=== PATIENT | female | born 1980 | race Caucasian/White ===

== ENCOUNTER 2018-06-26 10:22 | Outpatient (RCR) | payer MEDICAID, SELFPAY ==
--- NOTE | 2018-06-26 10:30 | PN_ITS ---
Date: 06/26/18 Referring: Koby Padgett MD Referring Provider Diagnosis: upper back pain, strain of trapezius muscle Physical Therapy Diagnosis: Central and left sided lower cervical/upper thoracic pain, radicular symptoms down left arm Reporting period: 04/23/18-06/26/18 Subjective: Patient reports she feels like she is 80% better since starting PT. She still has some pain left posterior neck that is the worst when she wakes up in the morning. Has occasional numbness down left arm when she wakes up in the morning but has not been happening as frequently. She has not had the chance to perform any over home exercises at home this past 2 weeks. She states her symptoms have been manageable. Objective: ROM: Cervical and shoulder AROM WNL bilaterally. Strength: Left shoulder strength flexion, extension, abduction, IR, and ER, 5/ 5. Elbow flexors and extensors 5/5. NDI score 14% impaired Treatment: Manual therapy [id number] x 1. Performed reassessment of ROM and strength. Therapeutic Procedures [id number] x 1. Reviewed home exercise program with patient to ensure correct technique. Performed cervical stabilization program phase 1 and 2. Direct treatment time: 30 minutes Total treatment time: 30 minutes Assessment: Patient is a 37 year old female referred for PT services with diagnosis of central and left sided lower cervical/upper thoracic pain, radicular symptoms down left arm. Patient reports she is 80% better since starting physical therapy. She still has some pain posterior left neck occasionally that is the worst in the morning. Occasionally still has some tingling down arm but not nearly as often as in the beginning and it subsides shortly after waking up. At initial evaluation her pain rating was 8/10 and she has tingling and numbness down arm into fingers. Her cervical and bilateral shoulder AROM is WNL which has improved from initial evaluation. Strength has also improved with much more manageable symptoms. Her NDI score is now 14% impaired compared to 44% impaired at initial evaluation. STG: __6__ weeks. 1. Pt will rate pain in posterior neck and left arm as no more than 3-4/10. Goal met. Pain 80% improved. 2. Pt will demonstrate cervical AROM WNL and pain free and pain free left shoulder AROM. Goal met. 3. Pt will demonstrate 4+/5 strength or better in all left shoulder and elbow muscles. Goal met. 4. Pt will score 20% impaired or less on the NDI. Goal met. LTG: ___8_ weeks. 1. Return to premorbid level of function. Goal met. 2. Return to full, pain-free, functional mobility. Goal met. 3. Independent with self-maintenance program. Goal met. Plan: Plan to discharge from formal PT treatment at this time. All of the patient s goal have been met. Patient instructed to continue with home exercise program for self management. Patient is in agreement with plan. Emperatriz Thomas, SPT Anu Morales, MPT
== END 2018-07-26 ==
LOC: PT 10:22
PROVIDERS: PCP Family Medicine; Referring Provider Family Medicine; Visit Provider Family Medicine
DX: M54.2 Cervicalgia (principal); M54.6 Pain in thoracic spine; M54.13 Radiculopathy, cervicothoracic region
CPT/HCPCS: 97110; 97140

== ENCOUNTER → 2018-07-18 19:49 | Outpatient (REF) | payer MEDICAID, SELFPAY ==
[2018-07-18 20:19] LABS: Bilirubin Negative (Negative); Blood Negative (Negative); Clarity Clear; Glucose Negative (Negative); Ketones Negative (Negative); Leukocyte Esterase Negative (Negative); Nitrite Negative (Negative); Urobilinogen 0.2 EU/dL (Up TO 0.2)
== END ==
LOC: LBN 19:49
PROVIDERS: PCP Family Medicine
DX: R10.30 Lower abdominal pain, unspecified (principal)
CPT/HCPCS: 81003

== ENCOUNTER 2018-09-25 11:09 | Outpatient (CLI) | payer MEDICAID, SELFPAY ==
[2018-09-25 13:04] LABS: ALT 24 U/L (12-78); AST 12 U/L (15-37); Alkaline Phosphatase 58 U/L (46-116); Anion Gap 11.4 mmol/L (3-11); BUN 11 mg/dL (7-18); Bilirubin, Total 0.3 mg/dL (0.2-1.0); CO2 24.6 mmol/L (21.0-32.0); CREATININE 0.78 mg/dL (0.55-1.02); Calcium 9.2 mg/dL (8.5-10.1); Chloride 103 mmol/L (98-107); Cholesterol 170 mg/dL (50-200); Glucose 102 mg/dL (70-100); HDL Cholesterol 43 mg/dL (40-60); LDL CHOLESTEROL 119 mg/dL (<100); Potassium 4.3 mmol/L (3.5-5.1); Sodium 139 mmol/L (136-145); Total Protein 7.2 g/dL (6.4-8.2); Triglyceride 99 mg/dL (30-150)
[2018-09-25 13:07] LABS: Abs Immature Grans 0.02 k/cumm (0.0-0.09); Absolute Basophil Count 0.03 k/cumm (0.0-0.2); Absolute Eosinophil Count 0.04 k/cumm (0.0-0.7); Absolute Lymphocyte Count 2.59 k/cumm (1.2-3.4); Absolute Neutrophil Count 6.14 k/cumm (1.2-6.7); Basophils % 0.3; Eosinophils % 0.4; HCT 41.6 % (36.0-46.0); Immature Grans % 0.2; Lymphocytes % 27.8; Mean Corp. HGB Concentration 33.7 g/dL (32.0-36.0); Mean Corpuscular Hemoglobin 29.5 pg (27.0-33.0); Mean Corpuscular Volume 87.6 fL (80-95); Mean Platelet Volume 9.6 fL (8.0-11.0); Monocytes % 5.4; Neutrophils % 65.9; Platelet Count 400 x1000/uL (130-400); RBC 4.75 m/cumm (4.00-5.20); RBC Distribution Width 12.7 % (11.7-14.6); White Blood Cell Count 9.32 k/cumm (4.4-10.8)
== END 2018-09-25 11:29 ==
PROVIDERS: PCP Family Medicine; Visit Provider Family Medicine
DX: E78.6 Lipoprotein deficiency (principal); N92.0 Excessive and frequent menstruation with regular cycle; R74.8 Abnormal levels of other serum enzymes
CPT/HCPCS: 36415; 80053; 80061; 83721; 85025

== ENCOUNTER 2018-09-25 12:33 | Outpatient (REF) | payer MEDICAID, SELFPAY ==
--- NOTE | 2018-09-25 11:07 | PAPFTD_PTH ---
PATIENT: Rosalba Jacques LOC: [facility] U#:[id number] AGE/SX: 37/F ROOM: RE09/25/[address]: Koby Padgett MD : 1980 BED: DIS: 09/25/2018 SPEC #: [id number] RECD: 09/26/18 17:59 STATUS: RASHADFrederick REQ #: [id number] HELEN: 09/25/18 11:[address]: Koby Padgett DEPT: [facility] Cytology RECD BY: Ifeoma Castle ENTERED: 09/26/18 18:00 SP TYPE: PAPFTD BARBRA DR: Isabel Calhoun MD Tissues: 1 - CX/ENDOCX FOR PAP SMEARS Procedures: PAP THIN PREP/UVM Diagnostic HPV DNA PROBE Comments: [id number]
== END 2018-09-25 12:53 ==
LOC: LBN 12:33
PROVIDERS: PCP Family Medicine; Visit Provider Family Medicine
DX: Z12.4 Encounter for screening for malignant neoplasm of cervix (principal); Z11.51 Encounter for screening for human papillomavirus (HPV)
CPT/HCPCS: 88175; 87624

== ENCOUNTER 2019-03-18 15:38 | Emergency (ER) | payer MEDICAID, SELFPAY ==
[2019-03-18 15:44] VITALS: BP 130/95; PULSE 120; RESP 16; TEMP 36.6; O2SAT 97
--- NOTE | 2019-03-18 15:57 | W.ED.GENAD ---
Discharge Plan Disposition Patient Disposition: HOME Condition: Improving Discharge Details Chief Complaint: DentalOral Clinical Impression: Lymphadenopathy, Dental infection Primary Care Provider: Isabel Calhoun ED Provider: Donna Shane Home Meds and New Rx's Prescriptions: Continued cephalexin 500 mg Tablet 500 mg PO BID RF: 0 Discharge Instructions Instructions: Dental Abscess (ED) Additional Instructions: Encourage hydration. Please take antibiotic as prescribed, one tab every six hours. Please call dentist tomorrow to schedule appointment next week. Your CT scan showed enlarged lymphnodes, likely from your dental infection. You were given IV antibiotics and IV steroids. If you develop fevers/chills, increased pain, increased swelling or other new/worsenig symptoms please seek care urgently once again. Referrals: Isabel Calhoun MD [Primary Care Provider] - Discharge Data Discharge Date/Time-TO BE ENTERED AT DEPARTURE: 03/18/19 18:40 Medical Decision Making Patient is a 38-year-old female, accompanied by multiple family members, with chief complaint of right lower dental pain. She reports that pain began approximately 1 week ago. She reports that she has a known damaged tooth that was recommended to have a root canal on. However, secondary to financial restrictions, patient has not been able to have this performed. She was seen by her dentist today who was concerned for possible abscess and referred her to the emergency department for further evaluation. She reports over the past few nights she has been feeling warm. She was prescribed Keflex 4 days ago ago but has been taking this only twice a day instead of the typical 4 times daily dosing. Her reports that the swelling seems to have gone down since beginning the Keflex. Patient has been tolerating his medications well. They both report that her voice seemed to be altered approximately 2 days ago and the swelling was maximal at that time. She reports she been having severe pain with chewing but has been hydrating well without difficulty or pain. On exam, the patient appears very anxious. She is speaking clearly with no sign of muffled voice or hot potato voice. She does have limited range of motion of her jaw this seems to be partially due to anxiety as she is opening it further while speaking that she is only to do during the exam. She does have palpable swelling under the right side of the mandible. However, no swelling is noted intraorally. Posterior oropharynx is without significant abnormality. No tonsillar swelling, uvula is midline. Area is not fluctuanct. Remaining exam is unremarkable. Her affected tooth is reported to be at the #[address] reviewed by radiologist: FINDINGS: Sinuses: There is an air fluid level left sphenoid sinus. Nasopharynx: Normal. Oropharynx: There is soft tissue fullness in the base of the tongue on the right. Hypopharynx: Normal. Larynx: Normal. Normal epiglottis. Retropharyngeal space: Normal. Submandibular/Parotid glands: Normal. Glands are normal in size. Thyroid: Normal. No enlarged or calcified nodules. Lymph nodes: There are enlarged right submandibular lymph nodes present. Largest of which measures 2.5 x 1.2 cm in dimension. Trachea: Visualized trachea is unremarkable. Lungs: Normal as visualized. Vasculature: No acute findings. Bones/joints: There is degenerative disc disease with narrowing of the C6-7 disc space and anterior and posterior osteophyte formation. Soft tissues: See Lymph Nodes Finding. IMPRESSION: 1. Enlarged right submandibular lymph nodes present as described above. Soft tissue fullness in the base of the tongue on the right with asymmetry recommend correlation with direct visualization. 2. Acute sinusitis involving the left sphenoid sinus Labs significant for WBC of 12.48 Discussed findings with the patient. She has received steroids and antibiotics. Discussed findings and advised that she should continue with the Keflex but discussed the expected dosing as she has not been taking the medicine as prescribed. Advised thatt this is liely stemming from her dental infection and that she will need f/u with a dentist for definitive care. She will contact them tomorrow to schedule appointment. We discussed new/worsening symptoms, in particular signs of abscess and worsening infection, and when to seek care urgently once again. All of her questions and concerns were addressed, she is in agreemnt with this plan. HPI General Mode of arrival: ambulatory. Date/Time Provider Initiated Documentation: 03/18/19 15:40. Limitations to Documentation: no limitations. Information obtained by: patient, family and RN notes reviewed. History of Present Illness 38 year old F presents to the emergency department with the chief complaint of right lower dental pain, described as moderate, with intensity rated at 8. Quality is described as burning, and is localized to the mouth. Patient reports no radiation. Patient started experiencing this day(s) and it has been constant. No relieving factors improve symptom(s), Eating worsens symptoms . Patient notes fever/chills (reports feeling warm yesterday); denies chest pain, cough and diaphoresis. Patient did receive the following treatments prior to arrival, none Related Data Home Medications Medication Instructions Recorded Confirmed cephalexin 500 mg PO BID 03/18/19 03/18/19 Allergies Allergy/AdvReac Type Severity Reaction Status Date / Time Penicillins Allergy Mild Rash Unverified 03/18/19 15:48 General Stated Complaint: DentalOral BON: 3 Review of Systems Constitutional Reports as per HPI, Denies chills, Denies fatigue, Reports fever(s), Denies headache(s) and Denies poor appetite Eyes Denies change in vision and Denies irritation ENT Reports as per HPI, Reports dental pain, Denies dysphagia, Denies dizziness, Denies dry mouth, Denies ear discharge, Denies otalgia, Reports facial pain, Denies headache(s), Denies hoarseness, Denies lip swelling, Denies nasal congestion, Denies odynophagia, Denies sore throat, Denies throat swelling, Denies tongue swelling and Reports other (swelling under jw) Cardiovascular Reports as per HPI and Denies chest pain Respiratory Reports as per HPI and Denies cough Gastrointestinal Reports as per HPI, Denies dysphagia, Denies nausea, Denies odynophagia and Denies vomiting Integumentary/Breasts Reports as per HPI, Denies erythema, Denies rash and Denies skin pain Neurologic Reports as per HPI, Denies dizziness and Denies headache(s) Endocrine Denies fatigue Allergic/Immunologic Denies lip swelling, Denies throat swelling and Denies tongue swelling PFSH Family History Brother Bipolar disorder Grandmother Neoplasm Social History Smoking/Tobacco Use Status: Current every day Tobacco Type: cigarettes Alcohol Intake: never Substance use type: does not use Frequency: does not exercise Britany/Anabaptist: No preference Special britany needs: No Seatbelt use: always Do you feel safe at home: Yes Do you feel safe in your relationship?: Yes Exam Const General: cooperative, healthy appearing, comfortable, no acute distress, well developed and well groomed Nutritional Appearance: average body habitus and well nourished Orientation: alert and awake [facility] Head: normal to inspection, normocephalic and atraumatic Ears: hearing grossly normal bilaterally, external ears normal and TM's normal bilaterally General nose exam: external nose normal and nares normal Face and sinus: normal facial exam, sinuses nontender and face symmetric Mouth: oral mucosae normal, lip normal, tongue normal, oropharynx normal, moist mucous membranes, no audible dysphonia, malodorous breath (cigarrettes), no muffled voice, No abnormal TMJ, no trismus and No restricted motion Teeth and gingiva: abnormal dentition (pain buccal right inferior. No swelling or fluctuance.), gingiva normal, caries and other (no swelling or pain along lingual side) Throat: posterior oropharynx normal, tonsils normal and uvula midline Eyes General: appearance normal, both eyes and all related structures Neck Neck: normal visual inspection, full ROM, no lymphadenopathy, supple, no anterior neck swelling, no midline deformity and other (swelling under the right side of the mandible. No fluctuance, no erythema) Thyroid: thyroid normal Resp Effort & Inspection: normal respiratory effort, able to speak in complete sentences and no respiratory distress Auscultation: clear to auscultation bilaterally, no rales, no rhonchi and no wheezes Cardio Rate: regular rate Rhythm: regular rhythm Heart Sounds: S1 normal and S2 normal Skin General skin exam: no rashes or lesions noted Trauma: no lacerations or abrasions Neuro General: alert and awake Cognition: normal cognition Speech: speech normal Gait: normal gait Psych Appearance: grossly normal and well kempt Mental Status: mental status grossly normal Speech and Movement: speech and movement normal Course Vital Signs Temperature 36.6 C 03/18/19 15:44 Pulse 120 H 03/18/19 15:44 Respiratory Rate 16 03/18/19 15:44 Blood Pressure 130/95 H 03/18/19 15:44 Pulse Oximetry 97 03/18/19 15:44 Temperature 36.6 C 03/18/19 15:44 Temperature Source Skin 03/18/19 15:44 Pulse 120 H 03/18/19 15:44 Respiratory Rate 16 03/18/19 15:44 Blood Pressure 130/95 H 03/18/19 15:44 Blood Pressure Position Sitting 03/18/19 15:44 Pulse Oximetry 97 03/18/19 15:44 Oxygen Delivery Method Room Air 03/18/19 15:44 Oxygen Flow Rate 0 03/18/19 15:44
--- NOTE | 2019-03-18 16:11 | DI.CT_ITS ---
SYMPTOM/DIAGNOSIS: RT SIDED SUBMANDIBULAR SWELLING NECK CT: The study was carried out with an intravenous administration of 100 cc's of Omnipaque 350. There is an air fluid level in the left sphenoid sinus. The nasopharynx is normal. There is soft tissue fullness in the base of the tongue on the right side. The hypopharynx is normal. The larynx, retropharyngeal space is normal. The salivary glands are normal. The thyroid is normal. Note is made of enlarged right submandibular lymph nodes, the largest of which measures 2.5 by 1.2 cm. The visualized portions of the trachea appear unremarkable. The lungs are intact. The vasculature is intact. Note is made of degenerative disc disease and narrowing at C 6-7 with anterior and posterior osteophytic spurring. SUMMARY: Enlarged right submandibular lymph nodes as noted above. There is soft tissue prominence in the base of the tongue on the right side. Acute sinusitis is noted involving the left sphenoid air cell.
[2019-03-18 16:28] LABS: HCT 42.3 % (36.0-46.0); HGB 14.5 g/dL (12.0-15.5); Mean Corp. HGB Concentration 34.3 g/dL (32.0-36.0); Mean Corpuscular Hemoglobin 30.5 pg (27.0-33.0); Mean Corpuscular Volume 88.9 fL (80-95); Mean Platelet Volume 9.9 fL (8.0-11.0); Platelet Count 355 x1000/uL (130-400); RBC 4.76 m/cumm (4.00-5.20); RBC Distribution Width 12.8 % (11.7-14.6); White Blood Cell Count 12.48 k/cumm (4.4-10.8)
--- NOTE | 2019-03-18 16:35 | ED.GENADUL_ITS ---
Discharge Plan Disposition Patient Disposition: HOME Condition: Improving Discharge Details Chief Complaint: DentalOral Clinical Impression: Lymphadenopathy, Dental infection Primary Care Provider: Isabel Calhoun ED Provider: Donna Shane Home Meds and New Rx's Prescriptions: Continued cephalexin 500 mg Tablet 500 mg PO BID RF: 0 Discharge Instructions Instructions: Dental Abscess (ED) Additional Instructions: Encourage hydration. Please take antibiotic as prescribed, one tab every six hours. Please call dentist tomorrow to schedule appointment next week. Your CT scan showed enlarged lymphnodes, likely from your dental infection. You were given IV antibiotics and IV steroids. If you develop fevers/chills, increased pain, increased swelling or other new/worsenig symptoms please seek care urgently once again. Referrals: Isabel Calhoun MD [Primary Care Provider] - Discharge Data Discharge Date/Time-TO BE ENTERED AT DEPARTURE: 03/18/19 18:40 Medical Decision Making Patient is a 38-year-old female, accompanied by multiple family members, with chief complaint of right lower dental pain. She reports that pain began approximately 1 week ago. She reports that she has a known damaged tooth that was recommended to have a root canal on. However, secondary to financial restr ictions, patient has not been able to have this performed. She was seen by her dentist today who was concerned for possible abscess and referred her to the emergency department for further evaluation. She reports over the past few nights she has been feeling warm. She was prescribed Keflex 4 days ago ago but has been taking this only twice a day instead of the typical 4 times daily dosing. Her reports that the swelling seems to have gone down since beginning the Keflex. Patient has been tolerating his medications well. They both report that her voice seemed to be altered approximately 2 days ago and the swelling was maximal at that time. She reports she been having severe pain with chewing but has been hydrating well without difficulty or pain. On exam, the patient appears very anxious. She is speaking clearly with no sign of muffled voice or hot potato voice. She does have limited range of motion of her jaw this seems to be partially due to anxiety as she is opening it further while speaking that she is only to do during the exam. She does have palpable swelling under the right side of the mandible. However, no swelling is noted intraorally. Posterior oropharynx is without significant abnormality. No tonsillar swelling, uvula is midline. Area is not fluctuanct. Remaining exam is unremarkable. Her affected tooth is reported to be at the #[address] reviewed by radiologist: FINDINGS: Sinuses: There is an air fluid level left sphenoid sinus. Nasopharynx: Normal. Oropharynx: There is soft tissue fullness in the base of the tongue on the right. Hypopharynx: Normal. Larynx: Normal. Normal epiglottis. Retropharyngeal space: Normal. Submandibular/Parotid glands: Normal. Glands are normal in size. Thyroid: Normal. No enlarged or calcified nodules. Lymph nodes: There are enlarged right submandibular lymph nodes present. Largest of which measures 2.5 x 1.2 cm in dimension. Trachea: Visualized trachea is unremarkable. Lungs: Normal as visualized. Vasculature: No acute findings. Bones/joints: There is degenerative disc disease with narrowing of the C6-7 disc space and anterior and posterior osteophyte formation. Soft tissues: See Lymph Nodes Finding. IMPRESSION: 1. Enlarged right submandibular lymph nodes present as described above. Soft tissue fullness in the base of the tongue on the right with asymmetry recommend correlation with direct visualization. 2. Acute sinusitis involving the left sphenoid sinus Labs significant for WBC of 12.48 Discussed findings with the patient. She has received steroids and antibiotics. Discussed findings and advised that she should continue with the Keflex but discussed the expected dosing as she has not been taking the medicine as prescribed. Advised thatt this is liely stemming from her dental infection and that she will need f/u with a dentist for definitive care. She will contact them tomorrow to schedule appointment. We discussed new/worsening symptoms, in particular signs of abscess and worsening infection, and when to seek care urgently once again. All of her questions and concerns were addressed, she is in agreemnt with this plan. HPI General Mode of arrival: ambulatory . Date/Time Provider Initiated Documentation: 03/18/19 15:40 . Limitations to Documentation: no limitations . Information obtained by: patient, family and RN notes reviewed . History of Present Illness 38 year old F presents to the emergency department with the chief complaint of right lower dental pain, described as moderate, with intensity rated at 8. Quality is described as burning, and is localized to the mouth. Patient reports no radiation. Patient started experiencing this day(s) and it has been constant. No relieving factors improve symptom(s), Eating worsens symptoms . Patient notes fever/chills (reports feeling warm yesterday); denies chest pain, cough and diaphoresis. Patient did receive the following treatments prior to arrival, none Related Data Home Medications Medication Instructions Recorded Confirmed cephalexin 500 mg PO BID 03/18/19 03/18/19 Allergies Allergy/AdvReac Type Severity Reaction Status Date / Time Penicillins Allergy Mild Rash Unverified 03/18/19 15:48 General Stated Complaint: DentalOral BON: 3 Review of Systems Constitutional Reports as per HPI, Denies chills, Denies fatigue, Reports fever(s), Denies headache(s) and Denies poor appetite Eyes Denies change in vision and Denies irritation ENT Reports as per HPI, Reports dental pain, Denies dysphagia, Denies dizziness, Denies dry mouth, Denies ear discharge, Denies otalgia, Reports facial pain, Denies headache(s), Denies hoarseness, Denies lip swelling, Denies nasal congestion, Denies odynophagia, Denies sore throat, Denies throat swelling, Denies tongue swelling and Reports other (swelling under jw) Cardiovascular Reports as per HPI and Denies chest pain Respiratory Reports as per HPI and Denies cough Gastrointestinal Reports as per HPI, Denies dysphagia, Denies nausea, Denies odynophagia and Denies vomiting Integumentary/Breasts Reports as per HPI, Denies erythema, Denies rash and Denies skin pain Neurologic Reports as per HPI, Denies dizziness and Denies headache(s) Endocrine Denies fatigue Allergic/Immunologic Denies lip swelling, Denies throat swelling and Denies tongue swelling PFSH Family History Brother Bipolar disorder Grandmother Neoplasm Social History Smoking/Tobacco Use Status: Current every day Tobacco Type: cigarettes Alcohol Intake: never Substance use type: does not use Frequency: does not exercise Britany/Gnosticist: No preference Special britany needs: No Seatbelt use: always Do you feel safe at home: Yes Do you feel safe in your relationship?: Yes Exam Const General: cooperative, healthy appearing, comfortable, no acute distress, well developed and well groomed Nutritional Appearance: average body habitus and well nourished Orientation: alert and awake [facility] Head: normal to inspection, normocephalic and atraumatic Ears: hearing grossly normal bilaterally, external ears normal and TM's normal bilaterally General nose exam: external nose normal and nares normal Face and sinus: normal facial exam, sinuses nontender and face symmetric Mouth: oral mucosae normal, lip normal, tongue normal, oropharynx normal, moist mucous membranes, no audible dysphonia, malodorous breath (cigarrettes), no muffled voice, No abnormal TMJ, no trismus and No restricted motion Teeth and gingiva: abnormal dentition (pain buccal right inferior. No swelling or fluctuance.), gingiva normal, caries and other (no swelling or pain along lingual side) Throat: posterior oropharynx normal, tonsils normal and uvula midline Eyes General: appearance normal, both eyes and all related structures Neck Neck: normal visual inspection, full ROM, no lymphadenopathy, supple, no anterior neck swelling, no midline deformity and other (swelling under the right side of the mandible. No fluctuance, no erythema) Thyroid: thyroid normal Resp Effort & Inspection: normal respiratory effort, able to speak in complete sentences and no respiratory distress Auscultation: clear to auscultation bilaterally, no rales, no rhonchi and no wheezes Cardio Rate: regular rate Rhythm: regular rhythm Heart Sounds: S1 normal and S2 normal Skin General skin exam: no rashes or lesions noted Trauma: no lacerations or abrasions Neuro General: alert and awake Cognition: normal cognition Speech: speech normal Gait: normal gait Psych Appearance: grossly normal and well kempt Mental Status: mental status grossly normal Speech and Movement: speech and movement normal Course Vital Signs Temperature 36.6 C 03/18/19 15:44 Pulse 120 H 03/18/19 15:44 Respiratory Rate 16 03/18/19 15:44 Blood Pressure 130/95 H 03/18/19 15:44 Pulse Oximetry 97 03/18/19 15:44 Temperature 36.6 C 03/18/19 15:44 Temperature Source Skin 03/18/19 15:44 Pulse 120 H 03/18/19 15:44 Respiratory Rate 16 03/18/19 15:44 Blood Pressure 130/95 H 03/18/19 15:44 Blood Pressure Position Sitting 03/18/19 15:44 Pulse Oximetry 97 03/18/19 15:44 Oxygen Delivery Method Room Air 03/18/19 15:44 Oxygen Flow Rate 0 04/23/19 15:44
[2019-03-18 16:53] LABS: ALT 37 U/L (12-78); AST 14 U/L (15-37); Alkaline Phosphatase 81 U/L (46-116); Anion Gap 13.8 mmol/L (3-11); BUN 7 mg/dL (7-18); Bilirubin, Total 0.6 mg/dL (0.2-1.0); CO2 24.2 mmol/L (21.0-32.0); CREATININE 0.73 mg/dL (0.55-1.02); Calcium 9.4 mg/dL (8.5-10.1); Chloride 100 mmol/L (98-107); Glucose 108 mg/dL (70-100); Potassium 3.6 mmol/L (3.5-5.1); Sodium 138 mmol/L (136-145); Total Protein 8.2 g/dL (6.4-8.2)
[2019-03-18] MEDS: Omnipaque 350 MG/ML 100 ML BTL IJ (17:09)
[2019-03-18] MEDS: Normal Saline Flush 10 ML SYR IVP (17:10)
[2019-03-18] MEDS: CLINDAMYCIN 900 MG/50 ML BAG 50 MG IVPB (17:14)
[2019-03-18] MEDS: Dexamethasone 10 MG/ML VIAL IVP (17:15)
[2019-03-18] MEDS: Normal Saline 500 ML 1000 ML IV (17:15)
--- NOTE | 2019-03-18 17:34 | DI.VRAD_ITS ---
EXAM: CT Neck With Contrast EXAM DATE/TIME: 03/18/2019 4:17 PM CLINICAL HISTORY: 38 years old, female; Signs and symptoms; Other: Right sided submandibular swelling TECHNIQUE: Imaging protocol: Axial computed tomography images of the neck with intravenous contrast. Coronal and sagittal reformatted images were created and reviewed. Radiation optimization: All CT scans at this facility use at least one of these dose optimization techniques: automated exposure control; mA and/or kV adjustment per patient size (includes targeted exams where dose is matched to clinical indication); or iterative reconstruction. Contrast material: OMNIPAQUE 350; Contrast volume: 100 ml; Contrast route: IV; COMPARISON: No relevant prior studies available. FINDINGS: Sinuses: There is an air fluid level left sphenoid sinus. Nasopharynx: Normal. Oropharynx: There is soft tissue fullness in the base of the tongue on the right. Hypopharynx: Normal. Larynx: Normal. Normal epiglottis. Retropharyngeal space: Normal. Submandibular/Parotid glands: Normal. Glands are normal in size. Thyroid: Normal. No enlarged or calcified nodules. Lymph nodes: There are enlarged right submandibular lymph nodes present. Largest of which measures 2.5 x 1.2 cm in dimension. Trachea: Visualized trachea is unremarkable. Lungs: Normal as visualized. Vasculature: No acute findings. Bones/joints: There is degenerative disc disease with narrowing of the C6-7 disc space and anterior and posterior osteophyte formation. Soft tissues: See Lymph Nodes Finding. IMPRESSION: 1. Enlarged right submandibular lymph nodes present as described above. Soft tissue fullness in the base of the tongue on the right with asymmetry recommend correlation with direct visualization. 2. Acute sinusitis involving the left sphenoid sinus Dictated and Authenticated by: Silvino Barrios MD. Ordering:ADRI Thompson MD
[2019-03-18 18:38] VITALS: BP 130/95; PULSE 110; RESP 16; TEMP 36.6; O2SAT 97
== END 2019-03-18 18:40 | disposition home or self-care (01) ==
PROVIDERS: Emergency Provider Physician Assistant; PCP Family Medicine
DX: R59.0 Localized enlarged lymph nodes (principal); K04.7 Periapical abscess without sinus; J01.30 Acute sphenoidal sinusitis, unspecified
CPT/HCPCS: 36415; 70491; 80053; 85027; 96365; 96375; 99285; 99284; J1100; J3490

== ENCOUNTER 2020-09-01 00:38 | Outpatient (CLI) | payer MEDICAID, SELFPAY ==
--- NOTE | 2020-09-01 09:15 | DI.US_ITS ---
EXAM: US PELVIS TRANSVAGINAL CLINICAL HISTORY: Pelvic pressure, R10.2 PELVIC AND PERINEAL PAIN TECHNIQUE: Ultrasound performed using standard protocol. COMPARISON: US OB US LIMITED from 01/15/2015 FINDINGS: Pelvic ultrasound was performed transabdominally and transvaginally. Uterus is unremarkable in appea judi, measuring 91 x 48 x 57 millimeters. The endometrial stripe is about 14 millimeters in thickne ss and appears homogeneous. No significant free intraperitoneal fluid. Right ovary is unremarkable in appearance, 32 x 18 x 18 millimeters. Left ovary is 27 x 20 x 21 millimeters, contains an apparent 18 millimeter corpus luteum/collapsing c yst Limited scanning of the kidneys is unremarkable. IMPRESSION: Negative pelvic ultrasound. DATA REPOSITORY:
== END 2020-09-01 00:58 ==
PROVIDERS: PCP Family Medicine; Visit Provider Nurse Practitioner Women's Health
DX: R10.2 Pelvic and perineal pain (principal)
CPT/HCPCS: 76830; 76856

== ENCOUNTER 2021-04-04 03:03 | Outpatient (CLI) | payer MEDICAID, SELFPAY ==
[2021-04-04 10:21] LABS: Source Nasal/Nares
[2021-04-04 12:28] LABS: COVID-19 PCR Negative (Negative)
== END 2021-04-04 03:04 | disposition home or self-care (01) ==
LOC: LBO 03:04
PROVIDERS: PCP Family Medicine; Visit Provider Surgery
DX: Z20.822 Contact with and (suspected) exposure to COVID-19 (principal); Z01.818 Encounter for other preprocedural examination
CPT/HCPCS: 87635

== ENCOUNTER 2021-04-06 08:19 | Day surgery (SDC) | payer MEDICAID, SELFPAY ==
--- NOTE | 2021-04-06 06:38 | W.PREOPHP ---
Date of service: 04/06/21 Time of Service: 09:13 Assessment and Plan Assessment and plan (1) Rectal pressure: Status: Acute Assessment and plan: Rosalba is see me today for continued rectal pressure and pain. She tried the Proctofoam twice daily for a week which did not help unfortunately. When I examined her in the office last time she did have a small fissure as well as some internal hemorrhoids. She was quite tender so I could not really do a thorough examination. I have recommended that we do an exam under anesthesia with internal hemorrhoid banding. Rosalba is extremely anxious and is having a panic attack as she is she is here in the office. She is afraid that she has cancer. I did try to reassure her that at her age and with the symptoms that she is having it is very unlikely that she has cancer. I did recommend that she call her primary care physician for some lorazepam on a short-term basis. I also think that she would greatly benefit from her being able to come in with her the day of surgery to keep her calm. Exam under anesthesia was reviewed with the patient as well as internal hemorrhoid banding. Risks, benefits, complications were reviewed with her. Complications include but are not limited to pain, infection, injury to the rectus muscle with resulting incontinence and adverse reaction to the medications. We discussed Covid testing prior to the procedure as well and quarantine requirements. Her questions were entertained and answered to her satisfaction and she wished to proceed. No guarantees were given or implied. Proceed with exam under anesthesia and internal hemorrhoid banding. History of Present Illness Narrative: Rosalba is back to see me today because she has had no improvement in her symptoms. She continues to have rectal pressure and pain especially with bowel movements. She denies constipation. She did try the Proctofoam for a week but does not feel that it helped. She has not noted any bleeding. She is quite anxious and is having a panic attack as she is afraid that she has cancer. I did try to reassure her that it is quite unlikely that at her age and without a family history that she has rectal cancer. On my examination the office last time she had a small fissure and internal hemorrhoids. She was quite uncomfortable with the examination last time so I think she would do better if we did an exam under anesthesia in the operating room right internal hemorrhoid banding over there. No changes in her health since I last saw her in the office Review of Systems Cardiovascular Cardiovascular: Denies chest pain, Denies chest pain at rest, Denies irregular heart rhythm, Denies dyspnea and Denies dyspnea on exertion Respiratory Respiratory: Denies cough, Denies dyspnea and Denies dyspnea on exertion Gastrointestinal Gastrointestinal: Reports as per HPI Genitourinary Genitourinary: Denies dysuria, Denies urinary incontinence and Denies urinary urgency Endocrine Endocrine: Reports system reviewed and no additional complaints, except as documented Hematologic/Lymphatic Hematologic/Lymphatic: Denies easy bruising and Denies lymphadenopathy FOR[facility]LY [facility] Medical History Abnormal weight loss (08/15/12) Chronic sinusitis, unspecified (03/26/09) Depression Esotropia, unspecified (10/25/05) EDMAR (generalized anxiety disorder) Headache Heavy menses Humerus fracture (01/15/09) AGE 11 Low serum HDL Neck pain Obesity Post traumatic stress disorder examination or test, positive result (09/04/14) Tobacco use disorder Family History Brother Bipolar disorder Grandmother Neoplasm BREAST Father , 58 Cancer Social History Smoking/Tobacco Use Status: Current every day Smoking risk assessment performed?: Yes Alcohol Intake: never Drug use: Never Caregiver/Support person: No Household members: significant other and children Housing: house Communication Needs: None Do you need help understanding health information?: Never Pets and animals: Yes Pets and animals: cat(s) Sexually active: Yes Do you think of yourself as: straight/heterosexual Current gender identity: female What is your relationship status?: living with partner Do you belong to any clubs or organized social groups?: no Panel score (0-1 are the most socially isolated patients): 1 What type of physical activity do you participate in: other Details: housework Frequency: does not exercise Britany/Orthodoxy: No preference Special britany needs: No Seatbelt use: always Drive intox or ride w/intox pharmacy delivery driver: No Do you feel safe at home: Yes Do you feel safe in your relationship?: Yes Meds Allergies and Home Medications Allergies Allergy/AdvReac Type Severity Reaction Status Date / Time Penicillins Allergy Mild Rash Verified 04/06/21 08:40 Home Medications Medication Instructions Recorded Confirmed Type acetylcysteine (bulk) 1,000 pwd DAILY 10/12/20 04/06/21 History cholecalciferol (vitamin D3) 25 25 mcg PO DAILY 10/12/20 04/06/21 History mcg (1,000 unit) capsule vitamin B complex 1 tab PO DAILY 10/12/20 04/06/21 History buspirone 30 mg tablet 15 - 30 mg PO BID #60 tab 03/25/21 04/06/21 Rx clonazepam 0.5 mg disintegrating 0.5 mg PO ONCE #1 tab 04/04/21 04/06/21 Rx tablet Exam Const General: healthy appearing and comfortable Resp Effort & Inspection: normal respiratory effort Auscultation: clear to auscultation bilaterally Cardio Rate: regular rate Rhythm: regular rhythm Heart Sounds: no click, no gallops and no murmurs
--- NOTE | 2021-04-06 06:39 | ROE_ITS ---
Date of service: 04/06/21 Time of Service: 15:11 Operative Note Operative Note DATE OF PROCEDURE: 04/06/21 PRE-OP DIAGNOSIS: rectal bleeding and pressure POST-OP DIAGNOSIS: other (Internal hemorrhoids) PROCEDURE: Exam under anesthesia and hemorrhoid banding SURGEON: Francine Og ANESTHESIA TYPE: Local By Surgeon (exparel mixed 50/50 with 0.25% Bupivocaine) and MAC Refer to Anesthesia Record ESTIMATED BLOOD LOSS: 5 PATHOLOGY: none sent COMPLICATIONS: None Patient was transported to: same day Patient's condition: stable Indications: Rosalba is see me today for continued rectal pressure and pain. She tried the Proctofoam twice daily for a week which did not help unfortunately. When I examined her in the office last time she did have a small fissure as well as some internal hemorrhoids. She was quite tender so I could not really do a thorough examination. I have recommended that we do an exam under anesthesia with internal hemorrhoid banding. Rosalba is extremely anxious and is having a panic attack as she is she is here in the office. She is afraid that she has cancer. I did try to reassure her that at her age and with the sy mptoms that she is having it is very unlikely that she has cancer. I did recommend that she call her primary care physician for some lorazepam on a short-term basis. I also think that she would greatly benefit from her being able to come in with her the day of surgery to keep her calm. Exam under anesthesia was reviewed with the patient as well as internal hemorrhoid banding. Risks, benefits, complications were reviewed with her. Complications include but are not limited to pain, infection, injury to the rectus muscle with resulting incontinence and adverse reaction to the medicat ions. We discussed Covid testing prior to the procedure as well and quarantine requirements. Her questions were entertained and answered to her satisfaction and she wished to proceed. No guarantees were given or implied. Proceed with exam under anesthesia and internal hemorrhoid banding. Findings: 3 Grade 2 internal hemorrhoids Procedure Description: After informed consent was obtained the patient was taken to the Operating room and placed in a left decubitous position on her gurney. Next a time out was done and the patients name, , allergies to medications, antibiotic given, procedure to be done were reviewed. Fire risk was assessed. Next exparel mixed 50/50 with bupivocaine was injected circumferentially around the rectum. A lighted anoscope was then placed into the rectum. Next 3 Grade 2 internal hemorrhoids were identified at the 3, 6 and 9 o'clock position. All 3 Hemorrhoids were banded without difficulty. The anoscope was removed. The skin was cleaned and dried. The patient was then taken back to [facility]. The patient tolerated the procedure well and there were no complications.
--- NOTE | 2021-04-06 06:40 | W.PM.DSUDISC ---
Discharge Plan Disposition Patient Disposition: HOME Condition: Good Discharge Details Reason For Visit: rectal pressure and bleeding Attending Provider: Francine Og Primary Care Provider: Koby Padgett Home Meds and New Rx's Prescriptions: New oxycodone 5 mg tablet 5 mg PO Q6H PRNQty: 14 RF: 0 Continued vitamin B complex [B Complex-Vitamin B12] Tablet 1 tab PO DAILY RF: 0 cholecalciferol (vitamin D3) 25 mcg (1,000 unit) capsule 25 mcg PO DAILY RF: 0 acetylcysteine (bulk) Powder 1,000 pwd DAILY RF: 0 buspirone 30 mg tablet 15 - 30 mg PO BID Qty: 60 RF: 11 clonazepam 0.5 mg tablet,disintegrating 0.5 mg PO ONCE Qty: 1 RF: 0 Discharge Instructions Instructions: Sitz Bath (DC), Rubber Band Ligation (DC) Additional Instructions: Activity at Home after surgery: 1. As tolerated Diet, Nutrition, & wound healin. Avoid alcohol until after you are recovered from your surgery 2. Make sure to eat plenty of lean protein (meat, fish, eggs, cottage cheese, beans) 3. Eat a variety of fruits and vegetables. Eat plenty of high fiber foods to avoid constipation. 4. Drink plenty of liquids to stay hydrated and avoid constipation Pain Medications: 1. Tylenol 650mg every 6 hours as needed and Ibuprofen 600 mg every 6 hours as needed. You may alternate between the 2 medications every 3 hours 2. If a narcotic has been prescribed take as directed only for breakthrough pain For Constipation: 1. Take Milk of Magnesia or MiraLax as needed for constipation Other: 1. You may shower daily or soak in a bathtub Wound Care: 1. Keep the incisions clean and dry Please call our office if you develop: 1. Fevers >101.5 2. Nausea or Vomiting 3. Worsening pain 4. Redness and thick discharge from the wounds If after hours please call the Hospital at and ask to speak to the on-call surgeon Stand Alone Forms: Anesthesia Discharge Inst. Referrals: Francine Og MD [ [facility] STAFF PHYSICIAN] - 04/22/21 8:30 am Activity:: Activity as Tolerated Shower/Bathe:: 24 hours Diet:: high fiber Discharge Orders Discharge Orders: Discharge Order (Routine); Ordered 04/06/21 Ordered By: Francine Og DS: Diagnosis Discharge Diagnosis (1) Rectal pressure: Status: Acute
[2021-04-06 08:45] VITALS: BP 133/79; PULSE 109; RESP 18; TEMP 36.5; O2SAT 100
--- NOTE | 2021-04-06 08:54 | W.ANESPRE ---
General Info Date of Service Date Performed: 04/06/21 Height: 5 ft 2 in Weight: 84.7 kg Body Mass Index (BMI): 34.1 Surgical Procedure: Operation Date: 04/06/21 09:40 Proposed Procedures Side Surgeon p Exam Under Anesthesia Francine Og MD s Hemorrhoid Banding internal Francine Og MD Meds Allergies and Home Medications Allergies Allergy/AdvReac Type Severity Reaction Status Date / Time Penicillins Allergy Mild Rash Verified 04/06/21 08:40 Home Medication Medication Instructions Recorded acetylcysteine (bulk) 1,000 pwd DAILY 10/12/20 cholecalciferol (vitamin D3) 25 25 mcg PO DAILY 10/12/20 mcg (1,000 unit) capsule vitamin B complex 1 tab PO DAILY 10/12/20 buspirone 30 mg tablet 15 - 30 mg PO BID #60 tab 03/25/21 clonazepam 0.5 mg disintegrating 0.5 mg PO ONCE #1 tab 04/04/21 tablet Current Visit Medications: Current Medications Generic Name Dose Route Start Last Admin Trade Name Freq PRN Reason Stop Dose Admin Ringer's Solution 1,000 mls @ 80 mls/hr 04/06/21 06:00 IV 05/05/21 23:59 INFUSION MICHELLE Metronidazole 500 mg in 100 mls @ 100 mls/hr 04/06/21 06:00 Flagyl IVPB 04/06/21 16:00 PREOP MICHELLE Ondansetron HCl 4 mg/ Sodium 52 mls @ 200 mls/hr 04/06/21 06:41 Chloride IVPB Q6H PRN PRN IV Miscellaneous Supplies 1 each 04/06/21 06:00 Iv Access IV 05/05/21 23:59 DIRECTED MICHELLE Oxycodone HCl 5 mg 04/06/21 06:41 Oxycodone 5 Mg Tab PO Q3H PRN PRN Pain Sodium Biphosphate/Sodium Phosphate 133 ml 04/06/21 06:00 Na Phosphate Enema 133 Ml Btl IN 04/06/21 16:00 PREOP MICHELLE Sodium Chloride 0 ml 04/06/21 06:00 Normal Saline Flush 10 Ml Syr IV 05/05/21 23:59 PRN PRN Sodium Chloride 0 ml 04/06/21 06:00 Normal Saline 10 Ml Vial IJ 05/05/21 23:59 DIRECTED PRN Sterile Water 0 ml 04/06/21 06:00 Water,Injection,Sterile 10 Ml Vial IJ 05/05/21 23:59 DIRECTED PRN PFSH Active Problems Active Problems: Problem Status Onset Code Rectal pressure R19.8 Medical History Medical History Abnormal weight loss (08/15/12) Chronic sinusitis, unspecified (03/26/09) Depression Esotropia, unspecified (10/25/05) EDMAR (generalized anxiety disorder) Headache Heavy menses Humerus fracture (01/15/09) AGE 11 Low serum HDL Neck pain Obesity Post traumatic stress disorder examination or test, positive result (09/04/14) Tobacco use disorder Tobacco Smoking/Tobacco Use Status: Current every day Passive smoking exposure: No Alcohol Alcohol Intake: never Substance Use Substance use: Never Vital Signs and Lab Results Vital Signs Most Recent Vital Signs in EMR: Most Recent Vital Signs Temp Pulse Resp BP Pulse Ox 36.5 C 109 H 18 133/79 100 04/06/21 08:45 04/06/21 08:45 04/06/21 08:45 04/06/21 08:45 04/06/21 08:45 Lab Results Blood Type / Crossmatch: Patient ABO/Rh A Positive 03/23/15 12:03 03/23/15 Antibody Screen Negative 03/23/15 12:03 03/23/15 Complete Blood Count: White Blood Count 12.48 k/cumm (4.4-10.8) H 03/18/19 16:00 03/18/19 Red Blood Count 4.76 m/cumm (4.00-5.20) 03/18/19 16:00 03/18/19 Hemoglobin 14.5 g/dL (12.0-15.5) 03/18/19 16:00 03/18/19 Hematocrit 42.3 % (36.0-46.0) 03/18/19 16:00 03/18/19 Platelet Count 355 x1000/uL (130-400) 03/18/19 16:00 03/18/19 Complete Metabolic Panel: Sodium Level 138 mmol/L (136-145) 03/18/19 16:00 03/18/19 Potassium Level 3.6 mmol/L (3.5-5.1) 03/18/19 16:00 03/18/19 Chloride Level 100 mmol/L (98-107) 03/18/19 16:00 03/18/19 Carbon Dioxide Level 24.2 mmol/L (21.0-32.0) 03/18/19 16:00 03/18/19 Blood Urea Nitrogen 7 mg/dL (7-18) 03/18/19 16:00 03/18/19 Creatinine 0.73 mg/dL (0.55-1.02) 03/18/19 16:00 03/18/19 Magnesium Level 2.1 mg/dL (1.8-2.4) 08/09/17 14:39 08/09/17 Calcium Level 9.4 mg/dL (8.5-10.1) 03/18/19 16:00 03/18/19 Albumin 4.0 g/dL (3.4-5.0) 03/18/19 16:00 03/18/19 Glucose Level 108 mg/dL (70-100) H 03/18/19 16:00 03/18/19 Liver Function Panel: Alanine Aminotransferase (ALT/SGPT) 37 U/L (12-78) 03/18/19 16:00 03/18/19 Aspartate Amino Transf (AST/SGOT) 14 U/L (15-37) L 03/18/19 16:00 03/18/19 Coagulation Panel: No Data to Display Cardiac Panel: No Data to Display Arterial Blood Gas: No Data to Display Venous Blood Gas: No Data to Display Pancreas Panel: No Data to Display Thyroid Panel: Thyroid Stimulating Hormone (TSH) 1.35 uIU/mL (0.36-3.74) 08/09/17 14:39 08/09/17 Infectious Disease: Coronavirus (COVID-19)(PCR) Negative (Negative) 04/04/21 09:25 04/04/21 Coronavirus 2019 Source Nasal/nares 04/04/21 09:25 04/04/21 Hepatitis B Surface Antigen Nonreactive 03/23/15 12:03 03/23/15 Syphilis Serology See comments (()) 03/23/15 12:03 03/23/15 Blood Cultures: No Data to Display Toxicology Panel: Urine Amphetamines Screen Negative (Negative) 09/24/14 16:06 09/24/14 Urine Benzodiazepines Screen Negative (Negative) 09/24/14 16:06 09/24/14 Urine Barbiturates Screen Negative (Negative) 09/24/14 16:06 09/24/14 Urine Cocaine Screen Negative (Negative) 09/24/14 16:06 09/24/14 Urine Methadone Screen Negative (Negative) 09/24/14 16:06 09/24/14 Urine Opiates Screen Negative (Negative) 09/24/14 16:06 09/24/14 Ur Tricyclic Antidepressants Screen Negative (Negative) 09/24/14 16:06 09/24/14 Ur Tetrahydrocannabinol (THC) Scrn Negative (Negative) 09/24/14 16:06 09/24/14 Panel: Urine HCG, Qualitative Negative 08/23/20 10:52 08/23/20 Anesthesia Assessment and Plan Anesthesia History Personal History: No History of Anesthesia Complications Family History: No Family History of Anesthesia Complications Exercise Tolerance Exercise Tolerance: Metabolic Equivalents>4 Pertinent Negatives Pertinent Negatives: No Symptoms of GERD Cardiac & Pulmonary Exam Cardiac Exam: Normal S1/S2 Heart Sounds Pulmonary Exam: Clear Bilateral Breath Sounds Airway Exam Known Difficult Airway: No Mallampati Class: 2 Mouth Opening: Normal (> 3cm) Thyromental Distance: Greater than 3 cm Neck Range of Motion: Full ROM Neck Circumference: Normal Teeth Condition: Normal Dentition ASA Classification ASA Score: ASA 2 Emergency Case?: No NPO Status NPO Status: NPO Clears >2 hours, Solids >8 hours Status Status: Negative HCG Anesthesia Plan Anesthesia Technique: General Anesthesia Airway Planned: Natural Airway Monitors Used: Standard Monitors
[2021-04-06 09:25] VITALS: BMI 34.1
[2021-04-06] MEDS: Lactated Ringers 1,000 ML 80 ML IV (09:25)
[2021-04-06] MEDS: Bupivacaine 0.25% Pres-Free 10 ML VIAL (09:45)
[2021-04-06] MEDS: Bupivacaine LIPOSOME/PF 133 MG/10 ML VIAL IJ (09:45)
[2021-04-06 10:15] VITALS: BP 126/71; PULSE 85; RESP 18; TEMP 36.1; O2SAT 99
[2021-04-06 10:24] VITALS: BP 126/78; PULSE 81; RESP 18; TEMP 36.6; O2SAT 100
[2021-04-06] MEDS: oxyCODONE 5 MG TAB PO (10:27)
--- NOTE | 2021-04-06 10:53 | W.ANESPOSTOP ---
Postoperative Evaluation Date, Time and Location Date Performed: 04/06/21 Time Performed: 10:53 Patient Location: Day Surgery Unit Vital Signs Most Recent Imported Vital Signs: Most Recent Vital Signs Temp Pulse Resp BP Pulse Ox 36.6 C 81 18 126/78 100 04/06/21 10:24 04/06/21 10:24 04/06/21 10:24 04/06/21 10:24 04/06/21 10:24 Pain Score Most Recent Pain Score: Most Recent Pain Score Pain Level 6 04/06/21 10:24 Assessment Mental Status: Awake (Alert & Oriented to Patient Baseline) Airway and Respiratory Function: Patent airway with normal (patient baseline) respiratory exam Cardiovascular Function: Hemodynamically Stable Hydration Status: Adequately Hydrated Nausea & Vomiting: No Nausea or Vomiting Pain: Pain is Moderate or Severe Postoperative Pain Management: Pain being addressed with medication Peripheral Nerve Block: Patient did not receive a nerve block
[2021-04-06 11:33] VITALS: BP 122/68; PULSE 97; RESP 18; TEMP 36.5; O2SAT 98
== END 2021-04-06 12:00 | disposition home or self-care (01) ==
LOC: SUR 08:19
PROVIDERS: PCP Family Medicine; Visit Provider Surgery
PROC: (CPT 46221; principal; 2021-04-06 09:30)
PROC: (CPT 46221; 2021-04-06 09:30)
DX: K64.1 Second degree hemorrhoids (principal); K62.5 Hemorrhage of anus and rectum; K62.89 Other specified diseases of anus and rectum
CPT/HCPCS: 46221; 81025; J2001; J2250

== ENCOUNTER 2024-01-08 08:40 | Outpatient (CLI) | payer MEDICAID, SELFPAY ==
[2024-01-08 13:01] LABS: ALT 29 U/L (14-59); AST 12 U/L (15-37); Albumin 3.8 g/dL (3.4-5.0); Alkaline Phosphatase 51 U/L (46-116); Anion Gap 10.6 mmol/L (3-11); BUN 17 mg/dL (7-18); Bilirubin, Total 0.3 mg/dL (0.2-1.0); CO2 23.4 mmol/L (21.0-32.0); CREATININE 1.1 mg/dL (0.55-1.02); Calcium 9.1 mg/dL (8.5-10.1); Calculated LDL 135 mg/dL (<100); Chloride 105 mmol/L (98-107); Cholesterol 203 mg/dL (<200); Estimated GFR 64.74 (mL/min/1.73m2); Glucose 111 mg/dL (74-106); HDL Cholesterol 43 mg/dL (40-60); Potassium 4.1 mmol/L (3.5-5.1); Sodium 139 mmol/L (136-145); Total Protein 7.1 g/dL (6.4-8.2); Triglyceride 125 mg/dL (<150)
[2024-01-08 19:18] LABS: Hepatitis C Ab w Rflx HCV PCR Negative (Negative)
== END 2024-01-08 08:41 | disposition home or self-care (01) ==
LOC: LOS 08:40
PROVIDERS: PCP Nurse Practitioner Family; Referring Provider Nurse Practitioner Family; Visit Provider Nurse Practitioner Family
DX: R79.89 Other specified abnormal findings of blood chemistry (principal); Z11.59 Encounter for screening for other viral diseases
CPT/HCPCS: 36415; 80053; 80061; 86803

== ENCOUNTER 2024-01-08 08:47 | Outpatient (REF) | payer MEDICAID, SELFPAY ==
--- NOTE | 2024-01-08 08:30 | PAPFT_PTH ---
PATIENT: Rosalba Jacques LOC: [facility] U#:[id number] AGE/SX: 43/F ROOM: RE01/08/[address]: Eusebio Morrison DNP : 1980 BED: DIS: 01/08/2024 SPEC #: [id number] RECD: 01/08/24 13:13 STATUS: JONNA KENT #: [id number] HELEN: 01/08/24 08:[address]: Eusebio Peñaloza DEPT: [facility] Cytology RECD BY: Ifeoma Castle Tissues: 1 - CX/ENDOCX FOR PAP SMEARS Procedures: PAP THIN PREP/[facility] Screening HPV DNA PROBE Comments: [id number]
== END 2024-01-08 08:48 | disposition home or self-care (01) ==
LOC: LBN 08:47
PROVIDERS: PCP Nurse Practitioner Family; Visit Provider Nurse Practitioner Family
DX: Z12.4 Encounter for screening for malignant neoplasm of cervix (principal); Z11.51 Encounter for screening for human papillomavirus (HPV)
CPT/HCPCS: 88142; 87624